=== PATIENT | female | born 1990 | race Two or more races ===

== ENCOUNTER 2023-03-16 15:09 | Emergency (ER) | payer OTHER ==
[~2023-03-16] VITALS: Ht 162.6 cm; Wt 63.6 kg
[~2023-03-16 15:09] MED LIST: [UNRECOGNIZED DRUG - REMARK]
[2023-03-16 15:13] VITALS: TEMP 98.3
[2023-03-16 16:17] LABS: APPEARANCE,URINE CLEAR (CLEAR); BILIRUBIN,URINE NEGATIVE (NEGATIVE); COLOR,URINE YELLOW (YELLOW); GLUCOSE, URINE (UA) NEGATIVE (NEGATIVE); KETONES,URINE NEGATIVE (NEGATIVE); LEUKOCYTE ESTERASE ,URINE MODERATE (NEGATIVE); NITRATE,URINE NEGATIVE (NEGATIVE); OCCULT BLOOD,URINE NEGATIVE (NEGATIVE); PH,URINE 5.5 (5.0-8.0); PROTEIN,URINE TRACE mg/dL (NEGATIVE); SPECIFIC GRAVITIY, URINE 1.021 (1.003-1.030); UROBILINOGEN,URINE <=1.0 mg/dL (<=1.0)
[2023-03-16] MEDS ORDERED: PHEN-846 PO (16:58)
[2023-03-16] MEDS ORDERED: SULF-261 PO (16:58)
[2023-03-16] MEDS ORDERED: PHENAZOPYRIDINE HCL 100 MG TABLET PO ONE (17:00)
[2023-03-16] MEDS ORDERED: SULFAMETHOX/TRIMETH DS 800-160 MG/TABLET PO ONE (17:00)
[2023-03-16 17:04] LABS: RBC,URINE 0-2 /HPF (0-2)
[2023-03-16 17:05] LABS: BACTERIA,URINE Few /HPF (None Seen); SQUAMOUS EPITHELIAL CELL,UR Few /LPF (None Seen)
[2023-03-16 17:11] VITALS: BP 114/66; PULSE 80; RESP 16
[2023-03-16 17:15] LABS: HCG,QUAL URINE NEGATIVE (NEGATIVE)
== END 2023-03-16 17:56 | disposition home or self-care (01) ==
LOC: EMS 15:11
DX: N39.0 Urinary tract infection, site not specified (principal); Z88.8 Allergy status to other drugs, medicaments and biological substances
CPT/HCPCS: 81001; 84703; 87086; 87186; 99283